=== PATIENT | female | born 1990 | race Caucasian/White ===

== ENCOUNTER 2017-09-07 20:10 | Emergency (ER) | payer SELFPAY ==
[2017-09-07 21:51] LABS: BASOPHIL % 0.7 % (0-2); PLATELET COUNT 370 x10^3mcL (130-400); RED CELL DISTRIBUTION WIDTH 12.4 % (11.5-14.5)
[2017-09-07 22:08] LABS: CALCIUM 8.9 mg/dL (8.5-10.1); CARBON DIOXIDE 22.5 mmol/L (21-32); CHLORIDE SERUM 104 mmol/L (98-107); CREATININE SERUM 0.5 mg/dL (0.6-1.0); GFR1 > 60 mL/min; GLUCOSE SERUM 87 mg/dL (74-106); SODIUM SERUM 137 mmol/L (136-145)
[2017-09-07 22:19] LABS: ALBUMIN 3.6 g/dL (3.4-5.0); ALKALINE PHOSPHATASE 71 U/L (46-116); ALT/SGPT 23 U/L (14-59); AST/SGOT 19 U/L (15-37); BILIRUBIN TOTAL 0.3 mg/dL (0.20-1.00); LIPASE 112 IU/L (73-393); TOTAL PROTEIN, SERUM 7.5 g/dL (6.4-8.2)
[2017-09-08 00:06] VITALS: BP 111/56
== END 2017-09-08 00:06 | disposition home or self-care (01) ==
LOC: ED 20:10
PROVIDERS: Emergency Medicine
DX: O46.91 Antepartum hemorrhage, unspecified, first trimester (principal); Z3A.00 Weeks of gestation of pregnancy not specified